=== PATIENT | female | born 1960 | race Two or more races ===

== ENCOUNTER 2020-02-21 20:00 | Inpatient (IN) | payer OTHER ==
[~2020-02-21] VITALS: Ht 152.4 cm; Wt 92.1 kg
[2020-02-21 20:50] VITALS: BP 120/81
[2020-02-21 21:00] VITALS: BP 120/81
--- NOTE | 2020-02-21 21:00 | NUR ---
FUR CUTTER NOTES [facility] 59 [facility]O FEMALE,ALERT,ORIENTED X4, DX CHEST PAIN,ABLE TO WALK WITH STEADY GAIT.OBESE,WITH SALINE LOCK LEFT AC #20 INTACT AND PATENT,DENIES CHEST PAIN AT THIS TIME.NO SKIN ISSUES.WITH KNOWN HX OF HTN,CVA 2012,NO RESIDUAL NOTED,DM AND INCREASED CHOLESTEROL.ALLI CORTEZ HOSPITALIST MADE AWARE OF PATIENT ARRIVAL ON THE FLOOR,WITH NEW ORDERS NOTED AND CARRIED OUT.CALL LIGHT IN REACH,NEEDS ANTICIPATED.
[2020-02-21] MEDS ORDERED: ONDANSETRON HCL/PF 4 MG/2 ML VIAL IVP PRN (21:30)
[2020-02-21] MEDS ORDERED: Z GUARD REMEDY 2 OZ OINT TP PRN (21:30)
[2020-02-21] MEDS ORDERED: ACETAMINOPHEN 325 MG TABLET PO PRN (21:30)
[2020-02-21] MEDS ORDERED: HEPARIN INFUSION/D5W 500 ML IV PRN (21:30)
--- NOTE | 2020-02-21 21:30 | NUR ---
OUTFITTER CABIN NOTES PATIENT INSTRUCTED NOT TO EAT AFTER MIDNIGHT,TO BE SEEN BY CARDIO DOCTOR FOR POSSIBLE PROCEDURE IN THE MORNING.
[2020-02-21] MEDS: ATORVASTATIN 10 MG TABLET PO SCH (22:26)
[2020-02-22] VITALS (13 sets, daily range): BP systolic 106–150; BP diastolic 63–92
[2020-02-22] MEDS ORDERED: HEPARIN SODIUM, PORCINE 1000 UNIT/1 ML VIAL IV ONE (00:30)
[2020-02-22] MEDS ORDERED: HEPARIN SODIUM, PORCINE 5000 UNITS/1 ML VIAL ONE (00:54)
--- NOTE | 2020-02-22 01:15 | NUR ---
PUDDLER PILE DRIVING NOTES HOSPITALIST ALLI CORTEZ MADE AWARE THAT PATIENT HEPARIN DRIP WAS STARTED AT OTHER HOSPITAL WHERE THE PATIENT CAME FROM.PER HEPARIN DRIP PROTOCOL,PATIENT NEEDS TO HAVE HEPARIN BOLUS OF 6,440 UNITS BEFORE HEPARIN DRIP START.ALLI ORDERED TO JUST GIVE 5000UNITS BOLUS NOTED AND CARRIED OUT.
[2020-02-22] MEDS ORDERED: SITA100T PO (01:52)
[2020-02-22] MEDS ORDERED: METF-441 PO (01:52)
[2020-02-22] MEDS ORDERED: ASPI-605 PO (01:52)
[2020-02-22] MEDS ORDERED: ATOR20TA PO (01:52)
[2020-02-22] MEDS ORDERED: GLIP10TA11 PO (01:52)
[2020-02-22] MEDS ORDERED: PIOG30TA10 PO (01:52)
[2020-02-22] MEDS ORDERED: LISI40TA4 PO (01:52)
[2020-02-22] MEDS ORDERED: DEXTROSE 50%-WATER 50 ML DISP.SYRIN IV PRN (02:30)
[2020-02-22] MEDS: BLOOD SUGAR DIAGNOSTIC 1 EACH STRIP IN SCH ×4 (06:24→21:36)
--- NOTE | 2020-02-22 06:42 | NUR ---
EXTRUDER OPERATOR HORIZONTAL NOTES FAIRLY RESTED,NPO POST MIDNIGHT FOR ANGIOGRAM THIS MORNING.VITALS SIGNS STABLE,NO CHEST PAIN,HEPARIN DRIP IN PROGRESS,NO BLEEDING NOTED.IN NO ACUTE DISTRESS.WILL ENDORSE TO DAY NURSE FOR RADHA.
--- NOTE | 2020-02-22 06:50 | NUR ---
RAIL GANG SUPERVISOR NOTES MD VISIT SEEN BY DR GALLEGOS WITH ORDER TO STOP HEPARIN DRIP THIS TIME FOR PROCEDURE AT 10 AM TODAY.
--- NOTE | 2020-02-22 07:25 | NUR ---
DRY CHAIN OPERATOR OPENING NOTES RECEIVED PT IN BED, ASLEEP. EASILY AROUSED, A/O X4. MICRONESIAN SPEAKING BUT CAN UNDERSTAND A LITTLE MOHAWK. PT TOLERATING RA, WITH NO ACUTE RESPIRATORY DISTRESS NOTED. PT DENIES ANY PAIN OR DISCOMFORT AT THIS TIME. PT ON TELEMONITORING WITH SR 65. PT AWARE WITH THE PLAN OF CARDIAC CATH TODAY MORNING. HEPARIN DRIP STOPPED BY NIGHT NURSE/EVERARDO PER DR. GALLEGOS'S ORDER. PT KEPT COMFORTABLE IN BED. CALL LIGHT KEPT WITHIN REACH. PT'S BED IN LOWEST LOCKED POSITION WITH SR X2. WILL CONTINUE PLAN OF CARE.
[2020-02-22 07:42] LABS: BASOPHILS % (AUTO) 0.3 % (0.0-2.0); EOSINOPHILS % (AUTO) 0.8 % (0.0-6.0); HEMATOCRIT 42 % (33-45); HEMOGLOBIN 13.5 g/dL (11.5-14.8); LYMPHOCYTES # (AUTO) 2.1 /CMM (0.8-4.8); LYMPHOCYTES % (AUTO) 21.4 % (20.0-44.0); MEAN CORPUSCULAR HGB CONC 32 g/dl (31.0-36.0); MEAN CORPUSCULAR VOLUME 94 fL (82-100); MONOCYTES # (AUTO) 0.8 /CMM (0.1-1.30); MONOCYTES % (AUTO) 7.9 % (2.0-12.0); NEUTROPHILS # (AUTO) 6.8 /CMM (1.8-8.9); NEUTROPHILS % (AUTO) 69.6 % (43.0-81.0); PLATELET COUNT (AUTO) 131 /CMM (150-450); RED BLOOD CELL COUNT(AUTO) 4.42 MIL/uL (4.0-5.2); WHITE BLOOD COUNT (AUTO) 9.8 K/uL (4.3-11.0)
[2020-02-22 07:56] LABS: CALCIUM, SERUM 8.9 mg/dL (8.5-10.1); CREATININE 0.7 mg/dL (0.6-1.3); MAGNESIUM 1.3 mg/dL (1.8-2.4); PHOSPHORUS 3.7 mg/dL (2.5-4.9); POTASSIUM 4.3 mmol/L (3.5-5.1); TOTAL PROTEIN, SERUM 6.6 g/dL (6.4-8.2)
[2020-02-22 07:58] LABS: CHOLESTEROL 161 mg/dL (<200); HDL CHOLESTEROL 47 mg/dL (40-60); LDL 99 mg/dL (0-99); TRIGLYCERIDES 100 mg/dL (30-150)
--- NOTE | 2020-02-22 08:10 | NUR ---
CNC MACHINIST NOTES PER NIGHT NURSE/RENO, HEPRARIN DRIP STOPPED AT 7AM. PER DR. GALLEGOS'S ORDER.
[2020-02-22] MEDS: CARVEDILOL 3.125 MG TABLET PO SCH ×2 (08:16→21:00)
[2020-02-22] MEDS ORDERED: NITROGLYCERIN ICAR 1,000 MCG/10 ML VIAL ICAR ONE (08:17)
[2020-02-22] MEDS ORDERED: HEPARIN SODIUM, PORCINE 1,000 UNIT/ML VIAL ONE (08:17)
[2020-02-22] MEDS ORDERED: VERAPAMIL HCL IV 5 MG/2 ML VIAL ONE (08:17)
[2020-02-22] MEDS ORDERED: LIDOCAINE HCL/PF 1% 30 ML SDV ONE (08:17)
[2020-02-22] MEDS ORDERED: IODIXANOL 150 ML IV ONE (08:17)
[2020-02-22] MEDS ORDERED: IV SET PRIMARY PUMP SET 1 EA INFUS.SET MC ONE (08:18)
[2020-02-22] MEDS ORDERED: IV NS 0.9% 500 ML IV ONE (08:18)
--- NOTE | 2020-02-22 08:30 | NUR ---
INSTRUCTION ASSISTANT PRINCIPAL NOTES PT WHEELED DOWN TO CORRECTIONAL MEDICINE PHYSICIAN PROCEDURE VIA BED. VS STABLE. AM MEDC GIVEN. PT SIGNED CONSENT AT BEDSIDE BEFORE LEAVING THE UNIT.
[2020-02-22] MEDS ORDERED: ASPIRIN EC 81 MG TABLET.DR PO SCH (09:00)
[2020-02-22] MEDS ORDERED: FENTANYL PF 100MCG/2ML AMPUL ONE (09:06)
[2020-02-22] MEDS ORDERED: MIDAZOLAM HCL 2 MG/2ML VIAL ONE (09:07)
--- NOTE | 2020-02-22 10:15 | NUR ---
received pt from shellfish processing laborer, s/p heart catheterization, no intervention, a/o x4, RA sat well, lungs clear, no edema, L hand TR band, pulses are palpable, NPO, v/s stable, no pain, seen by Dr Waterman for possible transfer and CABG.
[2020-02-22] MEDS: Magnesium 1GM/D5W 100ML PREMIX 100 ML IV SCH ×4 (12:04→16:44)
[2020-02-22] MEDS: INSULIN REGULAR, HUMAN 100 UNIT/ML 3 ML VIAL SQ PRN ×3 (12:19→21:43)
--- NOTE | 2020-02-22 13:10 | NUR ---
TR band is off, no bleeding, pulses are palpable, pt is stable.
--- NOTE | 2020-02-22 15:46 | NUR ---
pt transferred back to [facility], v/s stable, no pain.
--- NOTE | 2020-02-22 16:10 | NUR ---
VISION CARE ASSOCIATE NOTES RECEIVED PT FROM ICU, TRANSFERRED PT VIA BED, WITH 2 ICU NURSES ASSIST. PT TOLERATING RA, WITH NO ACUTE RESPIRATORY DISTRESS NOTED. PT DENIES ANY PAIN OR DISCOMFORT AT THIS TIME. ON GOING MAGNESIUM IV REPLACEMENT TO LAC G20, INTACT AND OPERATIONAL. PT ON TELEMONITORING WITH SR HR 60. PER DIETITIAN TEACHING PT DID NOT DO THE CATH D/T 80-90% BLOCKAGE, PT NEEDED TO HAVE CABG. CM/SARKIS INVOLVED AND AWARE FOR THE PLAN FOR TRANSFER TO ANOTHER ACUTE HOSPITAL. PT AWARE WELL. ALSO, PER DIETITIAN TEACHING, PER DR. SALAZAR, IF PT WONT LEAVE TODAY AT 5PM, RESTART HEPARIN DRIP, CHARGE NURSE/MARISEL MADE AWARE WITH THE PALN WELL. PT KEPT COMFORTABLE IN BED. BED IIN LOWEST, LOCKED POSITION WITH SRX2. CALL LIGHT KEPT WITHIN REACH.
--- NOTE | 2020-02-22 16:50 | NUR ---
AGRICULTURAL EDUCATION TEACHER NOTES CORRECTION OFFICER HEAD JUST HAD THE BLOOD DRAWN FOR PTT OF PT.
[2020-02-22] MEDS ORDERED: Magnesium 1GM/D5W 100ML PREMIX 100 ML IV ONE (17:00)
[2020-02-22] MEDS ORDERED: Magnesium 1GM/D5W 100ML PREMIX PIGGYBACK IV ONE (17:00)
--- NOTE | 2020-02-22 17:04 | NUR ---
FOUNDER CHAIRMAN AND CHIEF CREATIVE OFFICER NOTES RECEIVED TELEPHONE ORDER FROM DR. GALLEGOS THROUGH CHARGE NURSE/MARISEL. LEVAQUIN 1MG/KG BID SQ. CALLED PHARMACY AND SPOKE TO CELI TO PLACE ORDER, RN UNABLE TO FIND THE MEDICINE ON THE LIST OF ORDER.
--- NOTE | 2020-02-22 17:34 | NUR ---
LDR NURSE NOTES CALLED LAB REGARDING PTT RESULT FOR FOLLOW UP, SPOKE TO RAGHAVENDRA. AWAITING FOR RESULT.
--- NOTE | 2020-02-22 17:40 | NUR ---
LANDFILL GAS COLLECTION OPERATOR NOTES VERIFIED ORDER BY CHARGE NURSE/MARISEL. LOVENOX 1MG/KG BID SQ.
[2020-02-22] MEDS ORDERED: ENOXAPARIN SODIUM 100 MG/ML DISP.SYRIN SQ SCH (18:00)
--- NOTE | 2020-02-22 18:17 | NUR ---
LAND LEVELER NOTES CALLED AND SPOKE TO AIDEE/BETITE. PER BETTIE HE'S WORKING ON THE TRANSFER FOR PT TO [facility] AT THIS TIME. CHARGE NURSE MADE AWARE WELL.
--- NOTE | 2020-02-22 18:44 | NUR ---
MANAGER BEVERAGE CLOSING NOTES PT REMAINS IN BED, AWAKE, A/O X4. LAO SPEAKING BUT CAN UNDERSTAND A LITTLE MACEDONIAN. PT TOLERATING RA, WITH NO ACUTE RESPIRATORY DISTRESS NOTED. PT DENIES ANY PAIN OR DISCOMFORT AT THIS TIME. PT ON TELEMONITORING WITH SR 63. PT AWARE WITH THE PLAN OF BEING TRANSFERRED TO ANOTHER HOSPITAL. ALL NEEDS AND CARE ATTENDED. PT KEPT COMFORTABLE IN BED. CALL LIGHT KEPT WITHIN REACH. PT'S BED IN LOWEST LOCKED POSITION WITH SR X2. WILL ENDORSE TO INCOMING NIGHT NURSE FOR RADHA.
--- NOTE | 2020-02-22 19:55 | NUR ---
RN OPENING NOTES RECEIVED REPORT FROM GENACACELESTE PLASENCIA. Pt IS PENDING DISCHARGE/TRANSFER TO HIGHER LEVEL OF CARE, MOST LIKELY TO [facility], FOR CABG SX. PER CM STILL WAITING ON INSURANCE AND ACCEPTANCE AND AVAILABLE BEDS. NO ORDER AT THIS TIME DUE TO UNCERTAINTY OF BED AVAILABLE, ONCE CONFIRMED WITH CM THAT BED IS AVAILABLE AND INSURANCE WILL ACCEPT, THEN ORDER CAN BE PLACED. PER ASHU RN STILL NEED TO CONFIRM WITH DR GALLEGOS IF HE WANTS Pt TO CONTINUE WITH THE HEPARIN DRIP NOW OR KEEP THE HEPARIN DRIP DC'd AND KEEP THE LOVENOX 100MG SQ BID, WHICH HE ORDERED. PER CM DR BETTIE SAID Pt MUST BE TRANSFERRED [facility] TO GET THE URGENT CABG SX & WOULD LIKE Pt TO BE TRANSFERRED [facility], BUT ACCORDING TO CM, INSURANCE WILL NOT COVER [facility] TRANSFER UNLESS ALL OTHER OPTIONS HAVE BEEN EXHAUSTED AND Pt IS NOT ACCEPTED ANYWHERE ELSE. CM WILL CONTINUE TO FOLLOW UP AND WILL UPDATE ONCE THEY GET CONFIRMATION. IV ACCESS ON LAC#20G. TELE READING SR 68. NO S/S OF ACUTE DISTRESS OR SOB NOTED. Pt IS A/OX4, VERBAL, ABLE TO MAKE NEEDS KNOWN, YORUBA SPEAKING UNDERSTANDS SOME [place]GI[place]. SAFETY MEASURES IN PLACE. WILL CONTINUE TO MONITOR Pt's CONDITION AND SAFETY UNTIL Pt IS TRANSFERRED.
--- NOTE | 2020-02-22 20:23 | NUR ---
RN NOTES SPOKE WITH DR GALLEGOS ON THE PHONE TO CLARIFY ABOUT HEPARIN DRIP. PER DR GALLEGOS SAID TO NOT RESUME HEPARIN DRIP AND KEEP Pt ON LOVENOX 100MG BID SQ, SINCE Pt WILL BE TRANSFERRED TO A DIFFERENT FACILITY. PER DAYSHIFT ANGELA PLASENCIA, SHE ALREADY GAVE X1 DOSE OF SCHEDULED LOVENOX 100MG @1800.
--- NOTE | 2020-02-22 21:10 | NUR ---
RN NOTES GAVE REPORT TO [facility] RN KEITH ([phone]). Pt GOING TO [facility] RM [id number]. [facility] VICE PRESIDENT AT [phone]. ([phone])
[2020-02-22] MEDS: ATORVASTATIN 10 MG TABLET PO SCH (21:36)
--- NOTE | 2020-02-22 21:54 | NUR ---
REINSURANCE CLAIM ANALYST NOTES ACLS [facility] ARRIVED TO THE FLOOR. GAVE REPORT TO EMT. PRIOR TO DC ADMINISTERED 3UN OF INSULIN PER SLIDING SCALE BG 200. ADMINISTERED LIPITOR 20MG PO. VS STABLE. NO S/S OF ACUTE DISTRESS OR SOB NOTED. NO C/O SEVERE CP AT THIS TIME. Pt WAS SAFELY TRANSFERRED OUT OF FLOOR VIA AMBULANCE GURNEY. IV ON LAC #20G INTACT. WILL CALL [facility] ANGELA PARKER TO GIVE UPDATE & NOTIFY THAT Pt HAS LEFT.
--- NOTE | 2020-02-22 22:12 | NUR ---
RN NOTES CALLED [facility] TO GIVE UPDATE OF NIGHT MEDS GIVEN. INFORMED THEM THAT Pt HAS ALREADY LEFT FACILITY AND ARE ON THEIR WAY TO [facility].
--- NOTE | 2020-02-23 01:50 | NUR ---
RN NOTES ANGELA DAI FROM [facility] CALLED TO GET REPORT ON Pt.
[2020-02-23] MEDS ORDERED: LISINOPRIL (20MG) 20 MG TABLET PO SCH (09:00)
[2020-02-23] MEDS ORDERED: ASPIRIN EC 81 MG TABLET.DR PO SCH (09:00)
[2020-02-23] MEDS ORDERED: Medication Not On Formulary EA (Atorvastatin Calcium (Lipitor) 40 MG) PO SCH (09:00)
== END 2020-02-22 21:55 | disposition short-term general hospital (02) | DRG 280 ==
LOC: TELE 20:42 → ICU 02-22 10:21 → TELE 02-22 15:37
PROVIDERS: ADMIT Nurse Practitioner Acute Care; ATTEND Nurse Practitioner Acute Care
DX: I21.4 Non-ST elevation (NSTEMI) myocardial infarction (principal); E43 Unspecified severe protein-calorie malnutrition; E87.1 Hypo-osmolality and hyponatremia; I25.10 Atherosclerotic heart disease of native coronary artery without angina pectoris; I10 Essential (primary) hypertension; E66.01 Morbid (severe) obesity due to excess calories; E83.42 Hypomagnesemia; Z95.1 Presence of aortocoronary bypass graft; E88.09 Other disorders of plasma-protein metabolism, not elsewhere classified; R74.0 Nonspecific elevation of levels of transaminase and lactic acid dehydrogenase [LDH]; Z68.39 Body mass index [BMI] 39.0-39.9, adult; E11.65 Type 2 diabetes mellitus with hyperglycemia
CPT/HCPCS: 36415; 71045-TC; 80053-TC; 80061-TC; 82962-TC; 83735-TC; 84100-TC; 85025-TC; 85610-TC; 85730-TC; 87081-TC; 93307-TC; 93880-TC; C1887; G0378; G0500; J1644; J1650; J1815; J2250; J3010; J3475; J3490; J7040; Q9967